=== PATIENT | male | born 1980 | race Caucasian/White ===

== ENCOUNTER 2017-05-15 12:26 | Emergency (ER) | payer OTHER ==
[~2017-05-15] VITALS: Ht 180.3 cm; Wt 77.1 kg
[2017-05-15 12:26] VITALS: BP 136/94
[2017-05-15] MEDS ORDERED: NEOMY/BACITR/POLYMYXIN OINT PACKET. TP ONE (13:00)
[2017-05-15] MEDS ORDERED: CEPH-264 PO (13:13)
[2017-05-15] MEDS ORDERED: NAPR500T8 PO (13:13)
--- NOTE | 2017-05-15 13:13 | PHYS DOC ---
Past History Past Medical History: No Pertinent History Past Surgical History: No Surgical History Alcohol Use: Occasionally Drug Use: None Adult General Chief Complaint Chief Complaint: LACERATION/AVULSION HPI HPI Patient is a 36 year old male who presents with complaint of laceration to the left hand. Patient states that this happened 2 days ago. Patient was using a chainsaw that accidentally cut the medial aspect of the left hand. A shunt states that the wound was not deep. Patient has been caring for the wound at home. Patient noted increased drainage and redness which is why he came to the emergency department for evaluation. Patient also notes that he fell yesterday and accidentally sprayed his left finger. Patient denies any other injuries. Patient has had no fevers, lymphangitis, or inability to use the left hand. Patient states his last tetanus booster was 8 years ago. Review of Systems Review of Systems Constitutional: Denies fever or chills [] Eyes: Denies change in visual acuity, redness, or eye pain [] HENT: Denies nasal congestion or sore throat [] Respiratory: Denies cough or shortness of breath [] Cardiovascular: No additional information not addressed in HPI [] GI: Denies abdominal pain, nausea, vomiting, bloody stools or diarrhea [] : Denies dysuria or hematuria [] Musculoskeletal: Left index finger injury [] Integument: Left hand laceration [] Neurologic: Denies headache, focal weakness or sensory changes [] Endocrine: Denies polyuria or polydipsia [] Current Medications Current Medications Current Medications Medications (Trade) Dose Ordered Sig/Itzel Start Time Stop Time Status Last Admin Dose Admin Cephalexin HCl (Keflex) 500 mg 1X ONCE 05/15/17 13:30 05/15/17 13:31 Diphtheria/ Tetanus/Acell Pertussis (Boostrix) 0.5 ml ONCE ONCE 05/15/17 13:30 05/15/17 13:31 Neomycin/ Polymyxin/ Bacitracin (Triple Antibiotic Ointment) 1 pkt 1X ONCE 05/15/17 13:00 05/15/17 13:08 DC Allergies Allergies Allergies Coded Allergies Type Severity Reaction Last Updated Verified amoxicillin Allergy Mild 03/03/16 Yes Physical Exam Physical Exam Constitutional: Well developed, well nourished, no acute distress, non-toxic appearance. [] HENT: Normocephalic, atraumatic, bilateral external ears normal, oropharynx moist, no oral exudates, nose normal. [] Eyes: PERRLA, EOMI, conjunctiva normal, no discharge. [] Neck: Normal range of motion, no tenderness, supple, no stridor. [] Cardiovascular:Heart rate regular rhythm, no murmur [] Lungs & Thorax: Bilateral breath sounds clear to auscultation [] Abdomen: Bowel sounds normal, soft, no tenderness, no masses, no pulsatile masses. [] Skin: Warm, dry, no erythema, no rash. [] Back: No tenderness, no CVA tenderness. [] Extremities: 3 cm linear laceration along medial aspect of the left hand along the thenar eminence, exposed dermal layer present, no fatty tissue present and wound, mild surrounding erythema and soft tissue swelling, tenderness palpation along left second PIP joint of hand, full range of motion present. [] Neurologic: Alert and oriented X 3, normal motor function, normal sensory function, no focal deficits noted. [] Current Patient Data Vital Signs Vital Signs Date Time Temp Pulse Resp B/P (MAP) Pulse Ox O2 Delivery O2 Flow Rate FiO2 05/15/17 12:26 97.9 81 18 97 Room Air EKG EKG Not performed [] Radiology/Procedures Radiology/Procedures Not performed [] Course & Med Decision Making Course & Med Decision Making Pertinent Labs and Imaging studies reviewed. (See chart for details) The patient's wound is somewhat superficial but appears to be acutely inflamed. The patient's wound is not a candidate for delayed primary closure. The patient' s wound was cleaned in the emergency department and was dressed with antibiotic ointment and gauze. Wound will continue healing by secondary intent. The patient was started on oral Keflex in the emergency department for prophylaxis of wound infection. Patient was prescribed Keflex and Naprosyn for continued treatment at home. Advised follow-up in 3-5 days with primary doctor for wound reevaluation. Advised return emergency department for any worsening symptoms. Patient voiced understanding and in agreement with treatment plan. [] Dragon Disclaimer Dragon Disclaimer This chart was dictated in whole or in part using Voice Recognition software in a busy, high-work load, and often noisy Emergency Department environment. It may contain unintended and wholly unrecognized errors or omissions. Departure Departure: Impression: Primary Impression: Laceration of left hand Additional Impression: Sprain of left index finger Disposition: HOME, SELF-CARE Condition: IMPROVED Referrals: PCP,JEANNETTE (PCP) Patient Instructions: Finger Sprain, Wound Care, [id number] Additional Instructions: Follow-up with your primary doctor in 3-5 days for reevaluation. Return to the emergency department for any worsening symptoms. Scripts Naproxen (NAPROXEN) 500 Mg Tablet.dr 1 TAB PO BID, #20 TAB 0 Refills Prov: MARY JANE LIAO MD 05/15/17 Cephalexin (KEFLEX) 500 Mg Capsule 1 CAP PO TID, #21 CAP Prov: MARY JANE LIAO MD 05/15/17 Problem Qualifiers Primary Impression: Laceration of left hand Encounter type: initial encounter Foreign body presence: without foreign body Qualified Codes: S61.412A - Laceration without foreign body of left hand , initial encounter Additional Impression: Sprain of left index finger Encounter type: initial encounter Sprain of finger site: interphalangeal joint Qualified Codes: S63.631A - Sprain of interphalangeal joint of left index finger, initial encounter MARY JANE LIAO MD May 15, 2017 13:13
[2017-05-15] MEDS ORDERED: CEPHALEXIN 250 MG CAPSULE PO ONE (13:30)
[2017-05-15] MEDS ORDERED: DIPHTH,PERTUSS(ACELL),TET TOX 0.5 ML DISP.SYRIN. VAX IM ONE (13:30)
== END 2017-05-15 13:20 | disposition home or self-care (01) ==
LOC: ER 12:26
DX: S61.412A Laceration without foreign body of left hand, initial encounter (principal); S63.611A Unspecified sprain of left index finger, initial encounter; Z88.1 Allergy status to other antibiotic agents; W27.8XXA Contact with other nonpowered hand tool, initial encounter; Y93.89 Activity, other specified; Y99.8 Other external cause status; Y92.89 Other specified places as the place of occurrence of the external cause
CPT/HCPCS: 90471; 90715; 99283-25

== ENCOUNTER 2019-07-03 12:21 | Emergency (ER) | payer OTHER ==
[~2019-07-03] VITALS: Ht 165.1 cm; Wt 82.6 kg
[~2019-07-03 12:21] MED LIST: CEPH-264 PO; NAPR500T8 PO
[2019-07-03 12:29] VITALS: BP 137/99
[2019-07-03] MEDS ORDERED: methylPREDNISolone SOD SUCC PF 125 MG/2 ML VIAL. IM ONE (12:45)
--- NOTE | 2019-07-03 13:02 | PHYS DOC ---
Past History Past Medical History: No Pertinent History Past Surgical History: No Surgical History Alcohol Use: Occasionally Drug Use: None Adult General Chief Complaint Chief Complaint: SKIN PROBLEM HPI HPI Patient is a 38-year-old male who presents with complaint of rash and burning with itching and small patches on his forehead. Patient indicates that they just recently sprayed the house for fleas with an insecticide a couple of days ago and they had sprayed their pillows this well. Patient states the primarily sleeps on his back so doesn't feel like he got a lot of exposure. He states that he has stinging and burning to his face. He denies any shortness of breath or cough.[] Review of Systems Review of Systems Constitutional: Denies fever or chills [] Eyes: Denies change in visual acuity, redness, or eye pain [] HENT: Denies nasal congestion or sore throat [] Respiratory: Denies cough or shortness of breath [] Cardiovascular: No additional information not addressed in HPI [] Integument: Positive rash[] Current Medications Current Medications Current Medications Medications (Trade) Dose Ordered Sig/Itzel Start Time Stop Time Status Last Admin Dose Admin Methylprednisolone Sodium Succinate (SOLU-Medrol 125MG VIAL) 125 mg 1X ONCE 07/03/19 12:45 07/03/19 12:47 DC Allergies Allergies Allergies Coded Allergies Type Severity Reaction Last Updated Verified amoxicillin Allergy Mild 03/03/16 Yes Physical Exam Physical Exam Constitutional: Well developed, well nourished, no acute distress, non-toxic appearance. [] HENT: Normocephalic, atraumatic, bilateral external ears normal, oropharynx moist, no oral exudates, nose normal. [] Eyes: PERRLA, EOMI, conjunctiva normal, no discharge. [] Cardiovascular:Heart rate regular rhythm, no murmur [] Lungs & Thorax: Bilateral breath sounds clear to auscultation [] Skin: Face and forehead demonstrates small patches of erythema and warmth. [] Current Patient Data Vital Signs Vital Signs Date Time Temp Pulse Resp B/P (MAP) Pulse Ox O2 Delivery O2 Flow Rate FiO2 07/03/19 12:29 98.1 96 16 99 Room Air EKG EKG [] Radiology/Procedures Radiology/Procedures [] Course & Med Decision Making Course & Med Decision Making Pertinent Labs and Imaging studies reviewed. (See chart for details) [] Dragon Disclaimer Dragon Disclaimer This electronic medical record was generated, in whole or in part, using a voice recognition dictation system. Departure Departure: Impression: Primary Impression: Contact dermatitis and other eczema due to other chemical products Disposition: 01 HOME, SELF-CARE Condition: STABLE Referrals: CLARY CHINO MD (PCP) Patient Instructions: Contact Dermatitis Additional Instructions: You may use [id number] Benadryl as needed for itching and burning as well as [id number] sunburn remedies for symptomatic relief. Scripts Diphenhydramine Hcl (BENADRYL) 25 Mg Capsule 25 MG PO Q6HRS PRN for ITCHING, #30 CAP Prov: KARIE LASSITER Jr. DO 07/03/19 KARIE LASSITER Jr. DO Jul 03, 2019 13:02
[2019-07-03] MEDS ORDERED: DIPH25CA58 PO (13:16)
== END 2019-07-03 13:15 | disposition home or self-care (01) ==
LOC: ER 12:21
DX: L25.3 Unspecified contact dermatitis due to other chemical products (principal); Z88.1 Allergy status to other antibiotic agents
CPT/HCPCS: 96372; 99283; J2930